=== PATIENT | male | born 1990 | race Asian ===

== ENCOUNTER 2018-09-01 19:04 | Emergency (ER) | payer SELFPAY ==
[~2018-09-01] VITALS: Ht 172.7 cm; Wt 136.1 kg
[~2018-09-01 19:04] MED LIST: AMOX500C PO; HYDR-971 PO
[2018-09-01 19:20] VITALS: BP 128/71
[2018-09-01] MEDS ORDERED: CLIN300C8 PO (20:54)
[2018-09-01] MEDS ORDERED: MUPI15CR TP (20:54)
--- NOTE | 2018-09-01 20:54 | PHYS DOC ---
Past Medical History Past Medical History: No Pertinent History Past Surgical History: No Surgical History Additional Information: Nonsmoker Alcohol Use: None Drug Use: None Adult General Chief Complaint Chief Complaint: ABSCESS HPI HPI Patient is a 28 year old male presenting to the ED with an abscess on his right buttock. This is located immediately lateral to the gluteal cleft. Immunizations speaks limited Armenian and history was provided with the aid of his daughter. Patient's daughter states that the patient had a "boil" for a few months which popped open and started causing a lot more pain, causing him to come to the ED. Patient reports a 10 out of 10 pain. Patient states that he has not applied any cream or taken any medication to alleviate his symptoms. He denies fever. Patient states that the pain is only in the area of the abscess. Reports last tetanus booster greater than 5 years ago. Review of Systems Review of Systems Constitutional: Denies fever or chills [] Eyes: Denies change in visual acuity, redness, or eye pain [] HENT: Denies nasal congestion or sore throat [] Respiratory: Denies cough or shortness of breath [] Cardiovascular: Denies chest pain GI: Denies abdominal pain, nausea, vomiting, or diarrhea [] : Denies dysuria or hematuria [] Musculoskeletal: Denies back pain or joint pain [] Integument: Denies rash or skin lesions [] Neurologic: Denies headache, focal weakness or sensory changes [] Complete systems were reviewed and found to be within normal limits, except as documented in this note. Current Medications Current Medications Current Medications Medications (Trade) Dose Ordered Sig/Nelly Start Time Stop Time Status Last Admin Dose Admin Clindamycin HCl (Cleocin) 450 mg 1X ONCE 09/01/18 21:15 09/01/18 21:16 DC Diphtheria/ Tetanus/Acell Pertussis (Boostrix) 0.5 ml ONCE ONCE 09/01/18 21:15 09/01/18 21:16 DC Neomycin/ Polymyxin/ Bacitracin (Triple Antibiotic Ointment) 1 pkt 1X ONCE 09/01/18 21:15 09/01/18 21:16 DC Allergies Allergies Allergies Coded Allergies Type Severity Reaction Last Updated Verified No Known Drug Allergies 02/27/16 No Physical Exam Physical Exam Constitutional: Well developed, well nourished, obese, no acute distress, non- toxic appearance. [] HENT: Normocephalic, atraumatic, bilateral external ears normal, oropharynx moist, no oral exudates, nose normal. [] Eyes: PERRL, EOMI, conjunctiva normal, no discharge. [] Neck: Normal range of motion, no tenderness, supple Cardiovascular: Heart rate regular rhythm, no murmur [] Lungs & Thorax: Bilateral breath sounds clear to auscultation [] Abdomen: Soft, no tenderness Skin: Warm, dry, no erythema, no rash. Acanthosis nigricans in axillae and neck Back: No tenderness, no CVA tenderness. [] Extremities: No tenderness, ROM intact, no edema. [] Neurologic: Alert and oriented X 3, normal motor function, normal sensory function, no focal deficits noted. [] Psychologic: Affect normal, judgement normal, mood normal. [] Current Patient Data Vital Signs Vital Signs Date Time Temp Pulse Resp B/P (MAP) Pulse Ox O2 Delivery O2 Flow Rate FiO2 09/01/18 19:20 98.7 94 20 128/71 (90) 7 Room Air 98.7 EKG EKG [] Radiology/Procedures Radiology/Procedures [] Course & Med Decision Making Course & Med Decision Making 28-year-old male presenting to the ED due to abscess. Spontaneously drained at home. No fluctuance or induration appreciated. Patient denies history of diabetes although acanthosis nigricans appreciated. Denies any systemic symptoms. Clindamycin and Bactroban prescribed for home. Wound cleaned. And lack ointment applied. Empiric clindamycin initiated. Tetanus updated. Patient stable for discharge with outpatient follow-up with PCP. Discussed findings and plan with patient and family, who acknowledge understanding and agreement. Dragon Disclaimer Dragon Disclaimer This electronic medical record was generated, in whole or in part, using a voice recognition dictation system. Departure Departure Impression: Primary Impression: Abscess Disposition: 01 HOME, SELF-CARE Condition: STABLE Referrals: NO PCP (PCP) Patient Instructions: Abscess, [id number] Scripts Mupirocin Calcium (BACTROBAN CREAM) 15 Gm Cream..g. 1 ALLA TP TID, #30 GM Prov: WANG PLUMMER DO 09/01/18 Clindamycin Hcl (CLINDAMYCIN HCL) 300 Mg Capsule 1 CAP PO TID, #21 CAP Prov: WANG PLUMMER DO 09/01/18 WANG PLUMMER DO Sep 01, 2018 20:54
[2018-09-01] MEDS ORDERED: CLINDAMYCIN HCL 150 MG CAPSULE. PO ONE (21:15)
[2018-09-01] MEDS ORDERED: DIPHTH,PERTUSS(ACELL),TET TOX 0.5 ML DISP.SYRIN. VAX IM ONE (21:15)
[2018-09-01] MEDS ORDERED: NEOMY/BACITR/POLYMYXIN OINT PACKET. TP ONE (21:15)
== END 2018-09-01 21:40 | disposition home or self-care (01) ==
LOC: ER 19:04
DX: L02.31 Cutaneous abscess of buttock (principal)
CPT/HCPCS: 90471; 90715; 99283

== ENCOUNTER 2019-01-04 01:26 | Emergency (ER) | payer SELFPAY ==
[~2019-01-04] VITALS: Ht 180.3 cm; Wt 145.1 kg
[~2019-01-04 01:26] MED LIST changes: +CLIN300C8 PO; +HYDR-3164 PO; -HYDR-971 PO; +MUPI15CR TP
[2019-01-04 02:46] LABS: BASO # 0.1 x10^3/uL (0.0-0.2); BASO % 1 % (0-3); EOS # 0.7 x10^3/uL (0.0-0.7); EOS % 7 % (0-3); HEMATOCRIT 42.8 % (39.0-53.0); HEMOGLOBIN 14.1 g/dL (13.0-17.5); LYMPH # 3.1 x10^3/uL (1.0-4.8); LYMPH % 31 % (24-48); MEAN CORPUSCULAR HEMOGLOBIN 29 pg (25-35); MEAN CORPUSCULAR HGB CONC 33 g/dL (31-37); MEAN CORPUSCULAR VOLUME 88 fL (79-100); MONO # 0.7 x10^3/uL (0.0-1.1); MONO % 7 % (0-9); NEUT # 5.5 x10^3uL (1.8-7.7); NEUT % 55 % (31-73); PLATELET COUNT 310 x10^3/uL (140-400); RED BLOOD COUNT 4.88 x10^6/uL (4.30-5.70); RED CELL DISTRIBUTION WIDTH 13.3 % (11.5-14.5)
[2019-01-04 02:58] LABS: PROTHROMBIN TIME PATIENT 13.9 SEC (11.7-14.0)
--- NOTE | 2019-01-04 02:59 | RAD ---
PQRS Compliance statement: One or more of the following individualized dose reduction techniques were utilized for this examination: 1. Automated exposure control. 2. Adjustment of the mA and/or kV according to patient size. 3. Use of iterative reconstruction technique. Indication:headache; hypertension TECHNIQUE: CT head without IV contrast COMPARISON:None FINDINGS: No pathologic extra-axial or intra-axial fluid collection. The ventricles and basal cisterns are within normal limits. No acute intracranial bleed. No focal loss of nix-white differentiation. Orbits are within normal limits. No suspicious calvarial lesion. Visualized paranasal sinuses and mastoid air cells are clear. IMPRESSION: No acute intracranial process. Electronically signed by: Sharath Thibodeaux DO (01/04/2019 2:56 AM) [id number]
[2019-01-04 03:03] LABS: CALCIUM 8.8 mg/dL (8.5-10.1); CREATININE 0.9 mg/dL (0.7-1.3); GFR 101.2; POTASSIUM 3.9 mmol/L (3.5-5.1)
[2019-01-04 03:09] LABS: ALBUMIN 3.8 g/dL (3.4-5.0); ALBUMIN/GLOBULIN RATIO 0.8 (1.0-1.7); TOTAL BILIRUBIN 0.4 mg/dL (0.2-1.0); TOTAL PROTEIN 8.6 g/dL (6.4-8.2)
[2019-01-04] MEDS: fentaNYL PF VIAL 100 MCG/2 ML VIAL IV ONE (03:09)
[2019-01-04] MEDS: diphenhydrAMINE 50 MG/ML VIAL IVP ONE ×2 (03:09→03:39)
[2019-01-04] MEDS: PROCHLORPERAZINE 10 MG/2 ML VIAL. IV ONE (03:10)
[2019-01-04 03:17] VITALS: BP 131/73
[2019-01-04] MEDS: LIDOCAINE 2% 20 ML VIAL. IJ ONE (04:04)
[2019-01-04 04:18] LABS: BARBITURATES NEG (NEG); BENZODIAZEPINES NEG (NEG); CANNABINOIDS NEG (NEG); COCAINE NEG (NEG); METHADONE NEG (NEG); OPIATES NEG (NEG); PHENCYCLIDINE NEG (NEG)
[2019-01-04 04:19] LABS: AMPHETAMINE/METHAMPHETAMINE NEG (NEG)
--- NOTE | 2019-01-04 05:06 | PHYS DOC ---
Past Medical History Past Medical History: No Pertinent History Past Surgical History: No Surgical History Alcohol Use: None Drug Use: None Adult General Chief Complaint Chief Complaint: HEADACHE HPI HPI Patient is a 28 year old m p/w cc of headache for the last 1.5 hours. sudden onset hit him out of nowhere top of head, severe pain onset suddenly top of the head no neck pain no vomiting no visual changes arms and legs feel normal no chest pain just the headache. Review of Systems Review of Systems Constitutional: Denies fever or chills [] Eyes: Denies change in visual acuity, redness, or eye pain [] HENT: Denies nasal congestion or sore throat [] Respiratory: Denies cough or shortness of breath [] Cardiovascular: No additional information not addressed in HPI [] GI: Denies abdominal pain, nausea, vomiting, bloody stools or diarrhea [] : Denies dysuria or hematuria [] Patient says he has not had a headache in over a year All other systems were reviewed and found to be within normal limits, except as documented in this note. Current Medications Current Medications Current Medications Medications (Trade) Dose Ordered Sig/Nelly Start Time Stop Time Status Last Admin Dose Admin Diphenhydramine HCl (Benadryl) 25 mg 1X ONCE 01/04/19 03:45 01/04/19 03:46 DC 01/04/19 03:39 25 MG Fentanyl Citrate (Fentanyl 2ml Vial) 50 mcg 1X ONCE 01/04/19 02:15 01/04/19 02:16 DC 01/04/19 03:09 50 MCG Lidocaine HCl 20 ml 1X ONCE 01/04/19 03:45 01/04/19 03:46 DC 01/04/19 04:04 20 ML Lorazepam (Ativan) 1 mg 1X ONCE 01/04/19 04:00 01/04/19 04:01 DC 01/04/19 04:01 1 MG Prochlorperazine Edisylate (Compazine) 10 mg 1X ONCE 01/04/19 02:15 01/04/19 02:16 DC 01/04/19 03:10 10 MG Allergies Allergies Allergies Coded Allergies Type Severity Reaction Last Updated Verified No Known Drug Allergies 02/27/16 No Physical Exam Physical Exam Constitutional: Well developed, well nourished, moderate to severe distress HENT: Normocephalic, atraumatic, bilateral external ears normal, oropharynx moist, no oral exudates, nose normal. [] Eyes: PERRLA, EOMI, conjunctiva normal, no discharge. [] Neck: Normal range of motion, no tenderness, supple, no stridor. [] Cardiovascular:Heart rate regular rhythm, no murmur [] Lungs & Thorax: Bilateral breath sounds clear to auscultation [] Abdomen: Bowel sounds normal, soft, no tenderness, no masses, no pulsatile masses. [] Skin: Warm, dry, no erythema, no rash. [] Back: No tenderness, no CVA tenderness. [] Extremities: No tenderness, no cyanosis, no clubbing, ROM intact, no edema. [] Neurologic: Alert and oriented X 3, normal motor function, normal sensory function, no focal deficits noted. [] Psychologic: Affect normal, judgement normal, mood normal. [] Current Patient Data Vital Signs Vital Signs Date Time Temp Pulse Resp B/P (MAP) Pulse Ox O2 Delivery O2 Flow Rate FiO2 01/04/19 02:05 98.2 101 16 155/90 (111) 100 Room Air 98.2 Lab Values Laboratory Tests Test 01/04/19 02:30 01/04/19 03:30 01/04/19 04:37 White Blood Count 10.0 x10^3/uL (4.0-11.0) Red Blood Count 4.88 x10^6/uL (4.30-5.70) Hemoglobin 14.1 g/dL (13.0-17.5) Hematocrit 42.8 % (39.0-53.0) Mean Corpuscular Volume 88 fL (79-100) Mean Corpuscular Hemoglobin 29 pg (25-35) Mean Corpuscular Hemoglobin Concent 33 g/dL (31-37) Red Cell Distribution Width 13.3 % (11.5-14.5) Platelet Count 310 x10^3/uL (140-400) Neutrophils (%) (Auto) 55 % (31-73) Lymphocytes (%) (Auto) 31 % (24-48) Monocytes (%) (Auto) 7 % (0-9) Eosinophils (%) (Auto) 7 % (0-3) H Basophils (%) (Auto) 1 % (0-3) Neutrophils # (Auto) 5.5 x10^3uL (1.8-7.7) Lymphocytes # (Auto) 3.1 x10^3/uL (1.0-4.8) Monocytes # (Auto) 0.7 x10^3/uL (0.0-1.1) Eosinophils # (Auto) 0.7 x10^3/uL (0.0-0.7) Basophils # (Auto) 0.1 x10^3/uL (0.0-0.2) Prothrombin Time 13.9 SEC (11.7-14.0) Prothrombin Time INR 1.1 (0.8-1.1) Sodium Level 140 mmol/L (136-145) Potassium Level 3.9 mmol/L (3.5-5.1) Chloride Level 101 mmol/L (98-107) Carbon Dioxide Level 27 mmol/L (21-32) Anion Gap 12 (6-14) Blood Urea Nitrogen 18 mg/dL (8-26) Creatinine 0.9 mg/dL (0.7-1.3) Estimated GFR (Cockcroft-Gault) 101.2 BUN/Creatinine Ratio 20 (6-20) Glucose Level 140 mg/dL (70-99) H Calcium Level 8.8 mg/dL (8.5-10.1) Total Bilirubin 0.4 mg/dL (0.2-1.0) Aspartate Amino Transferase (AST) 35 U/L (15-37) Alanine Aminotransferase (ALT) 68 U/L (16-63) H Alkaline Phosphatase 70 U/L (46-116) Total Protein 8.6 g/dL (6.4-8.2) H Albumin 3.8 g/dL (3.4-5.0) Albumin/Globulin Ratio 0.8 (1.0-1.7) L Ethyl Alcohol Level < 10 mg/dL (0-10) Urine Opiates Screen Neg (NEG) Urine Methadone Screen Neg (NEG) Urine Barbiturates Neg (NEG) Urine Phencyclidine Screen Neg (NEG) Urine Amphetamine/Methamphetamine Neg (NEG) Urine Benzodiazepines Screen Neg (NEG) Urine Cocaine Screen Neg (NEG) Urine Cannabinoids Screen Neg (NEG) Urine Ethyl Alcohol Neg (NEG) CSF Color Colorless CSF Clarity Clear CSF WBC 0 /cmm (Not Established) CSF RBC 0 /cmm (Not Established) CSF Glucose 75 mg/dL (37-70) H CSF Total Protein 41.5 mg/dL (15.0-45.0) Laboratory Tests 01/04/19 02:30 Laboratory Tests 01/04/19 02:30 EKG EKG [] Radiology/Procedures Radiology/Procedures [] Impressions: Head CT negative acute Course & Med Decision Making Course & Med Decision Making Pertinent Labs and Imaging studies reviewed. (See chart for details) Severe sudden onset headache neuro intact no fever concern for subarachnoid CT head negative for informed consent obtained for lumbar puncture. Lumbar puncture procedure note: Prepped and draped usual fashion lidocaine subcutaneous for anesthesia first attempt L2-3 no fluid second attempt L3-4 20- gauge needle inserted clear fluid came out patient tolerated well neuro intact after the procedure Interpretation of the CSF showed no red blood cells clear no evidence of subarachnoid hemorrhage she was sleeping in the ER after the above treatment and he felt much much better his headache went away he was discharged in stable condition. Dragon Disclaimer Dragon Disclaimer This electronic medical record was generated, in whole or in part, using a voice recognition dictation system. Departure Departure Impression: Primary Impression: Headache Disposition: HOME, SELF-CARE Condition: STABLE Referrals: NO PCP (PCP) HARVEY ARSHAD MD Jan 04, 2019 05:06
[2019-01-04 05:40] LABS: CSF PROTEIN 41.5 mg/dL (15.0-45.0)
[2019-01-04 05:42] LABS: CSF CLARITY CLEAR; CSF COLOR COLORLESS; CSF RBC COUNT 0 /cmm (Not Established); CSF WBC COUNT 0 /cmm (Not Established)
== END 2019-01-04 06:22 | disposition home or self-care (01) ==
LOC: ER 01:26
DX: R51 Headache (principal)
CPT/HCPCS: 36415; 62270; 70450; 80053; 80307; 82945; 84157; 85025; 85610; 89051; 96374; 96375; 99284; G0480; J0780; J1200; J2001; J2060; J3010

== ENCOUNTER 2019-03-30 13:54 | Emergency (ER) | payer SELFPAY ==
[~2019-03-30] VITALS: Ht 182.9 cm; Wt 160.2 kg
[2019-03-30 13:59] VITALS: BP 153/103
[2019-03-30] MEDS ORDERED: DICL50TA4 PO (14:40)
[2019-03-30] MEDS ORDERED: GABA600T7 PO (14:40)
[2019-03-30] MEDS ORDERED: CYCL10TA2 PO (14:40)
--- NOTE | 2019-03-30 14:40 | PHYS DOC ---
Past Medical History Past Medical History: Other Additional Past Medical Histor: morbid obesity Past Surgical History: No Surgical History Alcohol Use: None Drug Use: None Adult General Chief Complaint Chief Complaint: FOOT INJURY PAIN HPI HPI Patient is a 29 year old male who presents to the ED today complaining of his right foot specifically great toe and second toe twitching for 3 days. Patient denies any known injury. Denies any pain. Denies any other exacerbating or alleviating factors to this twitching. Review of Systems Review of Systems Constitutional: Denies fever or chills [] Musculoskeletal: Reports right foot twitching Integument: Denies rash or skin lesions [] Neurologic: Denies headache, focal weakness or sensory changes [] All other systems were reviewed and found to be within normal limits, except as documented in this note. Allergies Allergies Allergies Coded Allergies Type Severity Reaction Last Updated Verified No Known Drug Allergies 02/27/16 No Physical Exam Physical Exam Constitutional: Well developed, well nourished, no acute distress, non-toxic appearance. [] Skin: Warm, dry, no erythema, no rash. [] Back: No tenderness, no CVA tenderness. [] Extremities: No twitching noted, right foot with no obvious deformity. He was also No tenderness, no cyanosis, no clubbing, ROM intact, no edema. [] Neurologic: Alert and oriented X 3, normal motor function, normal sensory function, no focal deficits noted. [] Psychologic: Affect normal, judgement normal, mood normal. [] Current Patient Data Vital Signs Vital Signs Date Time Temp Pulse Resp B/P (MAP) Pulse Ox O2 Delivery O2 Flow Rate FiO2 03/30/19 13:59 98.6 104 20 153/103 (120) 95 Room Air 98.6 Lab Values Laboratory Tests Test 03/30/19 14:14 Glucose (Fingerstick) 191 mg/dL (70-99) H EKG EKG [] Radiology/Procedures Radiology/Procedures [] Course & Med Decision Making Course & Med Decision Making Pertinent Labs and Imaging studies reviewed. (See chart for details) This is a 29-year-old male patient with no significant medical history presenting to the ED today complaining of twitching to the right great toe and second toe, symptoms began 3 days. Twitching is intermittent. No twitching in the ED. Blood glucose 191 in the ED. Blood pressure 153/103 heart rate 104 temperature 98.6 O2 sats 95% on room air. Patient has no previous history of diabetes or hypertension. I talked to patient about following up at the local clinics for possible diabetes and high blood pressure. Discharge on gabapentin and cyclobenzaprine as well as diclofenac. Patient is also overweight, encouraged to consider weight loss through diet and exercise. Dragon Disclaimer Dragon Disclaimer This electronic medical record was generated, in whole or in part, using a voice recognition dictation system. Departure Departure Impression: Primary Impression: Elevated blood pressure reading Additional Impressions: Hyperglycemia Neuropathy Disposition: HOME, SELF-CARE Condition: STABLE Referrals: NO PCP (PCP) Follow-up with one of the local clinics Patient Instructions: Diabetic Neuropathy Additional Instructions: You were evaluated in the emergency room, your blood glucose was slightly up at 191 and a blood pressure was high at 153/103. Please follow-up with one of the local clinics for blood glucose and blood pressure monitoring. We put you on medications. Take them as prescribed. Scripts Cyclobenzaprine Hcl (CYCLOBENZAPRINE HCL) 10 Mg Tablet 1 TAB PO TID, #30 TAB Prov: AUGUSTO LOBO APRN 03/30/19 Diclofenac Sodium (DICLOFENAC SODIUM) 50 Mg Tablet. 1 TAB PO BID, #20 TAB 0 Refills Prov: AUGUSTO LOBO APRN 03/30/19 Gabapentin (GABAPENTIN) 600 Mg Tablet 600 MG PO TID PRN for PAIN, #30 TAB Prov: AUGUSTO LOBO APRN 03/30/19 Problem Qualifiers AUGUSTO LOBO APRN Mar 30, 2019 14:40
== END 2019-03-30 14:00 | disposition home or self-care (01) ==
LOC: ER 13:54
DX: R25.3 Fasciculation (principal); E66.01 Morbid (severe) obesity due to excess calories; Z68.42 Body mass index [BMI] 45.0-49.9, adult
CPT/HCPCS: 82962; 99283

== ENCOUNTER 2020-10-29 04:19 | Emergency (ER) | payer SELFPAY ==
[~2020-10-29] VITALS: Ht 167.6 cm; Wt 162.0 kg
[~2020-10-29 04:19] MED LIST changes: -CLIN300C8 PO; +CLIN300C9 PO; +CYCL10TA2 PO; +DICL50TA4 PO; +GABA600T7 PO
[2020-10-29 11:15] VITALS: BP 164/86
[2020-10-29] MEDS ORDERED: IOHEXOL 300 MG/ML 100ML VIAL. IV ONE (11:30)
[2020-10-29] MEDS ORDERED: SULF1TAB24 PO (11:43)
[2020-10-29] MEDS ORDERED: CEPH-264 PO (11:43)
--- NOTE | 2020-10-29 11:44 | ED.ADGEN ---
Past Medical History Past Medical History: No Pertinent History Additional Past Medical Histor: morbid obesity Past Surgical History: No Surgical History Smoking Status: Never Smoker Alcohol Use: None Drug Use: None General Adult EDM: Chief Complaint: ABSCESS HPI: HPI: Patient is a 30 year old male who presents to the ER with complaints of right buttock pain, redness, and swelling for the last 4 days that began to drain bloody pus early this morning. Pt denies any fever, body aches, chills, fatigue, abdominal pain, nausea, vomiting, or diarrhea. He currently states it is very painful but will not rate on the pain scale. Pt speaks Chukese only, family at bedside translates for him, he refuses the adult neuropsychologist phone at this time. HPI is limited due to patient non-compliance with recommended treatment. Review of Systems: Review of Systems: Complete ROS is negative unless otherwise documented in the HPI Current Medications: Current Medications Medications (Trade) Dose Ordered Sig/Nelly Start Time Stop Time Status Last Admin Dose Admin Info (CONTRAST GIVEN -- Rx MONITORING) 1 each PRN DAILY PRN 10/29/20 11:45 10/31/20 11:44 Iohexol (Omnipaque 300 Mg/ml) 75 ml 1X ONCE 10/29/20 11:30 10/29/20 11:33 DC Allergies: Allergies: Allergies Coded Allergies Type Severity Reaction Last Updated Verified No Known Drug Allergies 02/27/16 No Physical Exam: PE: Constitutional: Well developed, well nourished, no acute distress, non-toxic appearance, morbidly obese. [] HENT: Normocephalic, atraumatic, bilateral external ears normal, nose normal. [] Eyes: PERRLA, EOMI, conjunctiva normal, no discharge. [] Neck: Normal range of motion, no stridor. [] Cardiovascular:Heart rate regular rhythm Lungs & Thorax: Respirations even and unlabored, no retractions, no respiratory distress Skin: Warm, dry; indurated, tender, warm, erythemic area to the right butt ock/gluteal cleft with a central 2 cm open area with bloody purulent drainage concerning for perirectal abscess and cellulitis present; dry cracked skin of bilateral heels of feet present Extremities: No cyanosis, ROM intact Neurologic: Alert and oriented X 3, no focal deficits noted. [] Psychologic: Affect normal, judgement normal, mood normal. [] Current Patient Data: Vital Signs: Vital Signs Date Time Temp Pulse Resp B/P (MAP) Pulse Ox O2 Delivery O2 Flow Rate FiO2 10/29/20 08:34 97.9 96 22 155/95 (115) 98 Room Air 97.9 EKG: EKG: [] Heart Score: Risk Factors: Risk Factors: DM, Current or recent (<one month) smoker, HTN, HLP, family his tory of CAD, obesity. Risk Scores: Score 0 - 3: 2.5% MACE over next 6 weeks - Discharge Home Score 4 - 6: 20.3% MACE over next 6 weeks - Admit for Clinical Observation Score 7 - 10: 72.7% MACE over next 6 weeks - Early Invasive Strategies Radiology/Procedures: Radiology/Procedures: [] Course & Med Decision Making: Course & Med Decision Making Pertinent Labs and Imaging studies reviewed. (See chart for details) Patient is a 30-year-old male who presented to the emergency room with request for treatment of an abscess on his right buttock. Initially the patient refused to use the [employer] adult neuropsychologist line and insisted that his family translate for him, he spoke limited Bulgarian. Upon examination the abscess was open and draining bloody purulent fluid. I recommended labs, IV, IV antibiotics, CT scan, and possible admission to the hospital for treatment of perirectal abscess. The patient was adamant that he did not want to have an IV, CT scan, or admission. The [employer] interpeter line was used by the nurse to explain the recommended treatment, pt continue to refused all care that was offered to him. Pt states to myself and Frederick JIN that he just wanted to have a dressing placed on his buttock and to have the site looked at. I strongly encouraged patient to return to the emergency room if his symptoms got worse, he developed a fever, chills, body aches, or worsening symptoms. Prescriptions were written for bactrim and keflex and the patient signed an AMA form. [] Dragon Disclaimer: Dragon Disclaimer: This electronic medical record was generated, in whole or in part, using a voice recognition dictation system. Departure Departure Impression: Primary Impression: Abscess of buttock, right Additional Impression: Refusal of care by patient Disposition: 01 DC HOME SELF CARE/HOMELESS Condition: STABLE Referrals: NO PCP (PCP) Patient Instructions: Abscess, [id number], Kalyn-Rectal Abscess Additional Instructions: Fill the prescription(s) and use as directed. You may take tylenol or ibuprofen as needed for pain. Apply warm, moist packs to the area to frequently help decr ease discomfort. Recommend sitz baths in warm water. Follow up with your primary care doctor in 24-48 hours to have wound rechecked. You refused to have labs, a CT, and possible admission to the hospital today, Return to the ER sooner if your symptoms worsen or you develop a fever. Scripts Sulfamethoxazole/Trimethoprim (BACTRIM DS TABLET) 1 Each Tablet 1 TAB PO BID for 10 Days, #20 TAB 0 Refills Prov: MARIEL ANDREA APRN 10/29/20 Cephalexin (KEFLEX) 500 Mg Capsule 500 MG PO QID for 10 Days, #40 CAP 0 Refills Prov: MARIEL ANDREA APRN 10/29/20 Problem Qualifiers MARIEL ANDREA APRN Oct 29, 2020 11:43
[2020-10-29] MEDS ORDERED: CONTRAST GIVEN. MC PRN (11:45)
== END 2020-10-29 10:45 | disposition home or self-care (01) ==
LOC: ER 04:19
DX: L02.31 Cutaneous abscess of buttock (principal); R60.0 Localized edema; E66.01 Morbid (severe) obesity due to excess calories; Z68.43 Body mass index [BMI] 50.0-59.9, adult
CPT/HCPCS: 99283